=== PATIENT | female | born 1980 | race Caucasian/White ===

== ENCOUNTER → 2016-08-19 | Outpatient (REF) | payer OTHER ==
[~2016-08-19] MED LIST: ACET500C OR; COLA100C2 OR; IBUP600T OR; MILKSUS OR; PRENTAB8 PO
== END ==
LOC: M SFHCWAGY 11:10
PROVIDERS: ATTEND Nurse Practitioner Women's Health
DX: Z12.4 Encounter for screening for malignant neoplasm of cervix (principal); N72 Inflammatory disease of cervix uteri

== ENCOUNTER 2018-11-03 08:43 | Emergency (ER) | payer OTHER ==
[~2018-11-03] VITALS: Ht 167.6 cm; Wt 81.8 kg
[2018-11-03] MEDS ORDERED: diazePAM 5 MG TAB PO ONE (09:30)
[2018-11-03] MEDS ORDERED: methylPREDNISolone INJ 125 MG/2 ML VIAL (J2930) IM ONE (09:30)
[2018-11-03] MEDS ORDERED: VALI5TAB PO (10:05)
[2018-11-03] MEDS ORDERED: PRED20TA PO (10:05)
[2018-11-03 10:18] VITALS: BP 115/54
== END 2018-11-03 10:20 | disposition home or self-care (01) ==
LOC: M ED 08:43
DX: M54.42 Lumbago with sciatica, left side (principal); M62.830 Muscle spasm of back; Z79.1 Long term (current) use of non-steroidal anti-inflammatories (NSAID)
CPT/HCPCS: 96372; 99283; J2930

== ENCOUNTER → 2018-11-30 | Outpatient (REF) | payer OTHER ==
[~2018-11-30] MED LIST changes: +PRED20TA PO; +VALI5TAB PO
[2018-11-30 10:19] LABS: ALBUMIN 3.6 GM/DL (3.2-5.2); ALT/SGPT 26 U/L (12-78); BILIRUBIN,TOTAL 0.4 MG/DL (0.2-1.0); BLOOD UREA NITROGEN 9 MG/DL (7-18); CALCIUM LEVEL 8.7 MG/DL (8.5-10.1); CARBON DIOXIDE LEVEL 25 MEQ/L (21-32); CHLORIDE LEVEL 111 MEQ/L (98-107); CHOLESTEROL LEVEL 185 MG/DL (<200); CHOLESTEROL RISK RATIO 2.642 (<5); CREATININE FOR GFR 0.68 MG/DL (0.55-1.30); GLOMERULAR FILTRATION RATE > 60.0 (>60); GLUCOSE, FASTING 88 MG/DL (70-100); HDL CHOLESTEROL 70 MG/DL (>40); LDL CHOLESTEROL 106 MG/DL (<100); NON-HDL-C 115 MG/DL; POTASSIUM SERUM 4.2 MEQ/L (3.5-5.1); SODIUM LEVEL 141 MEQ/L (136-145); TRIGLYCERIDES LEVEL 44 MG/DL (<150)
== END ==
LOC: M SFHCPLAZ 07:55
PROVIDERS: ATTEND Family Medicine
DX: Z13.1 Encounter for screening for diabetes mellitus (principal); Z13.220 Encounter for screening for lipoid disorders

== ENCOUNTER → 2021-11-29 | Outpatient (CLI) | payer OTHER ==
[2021-11-29 10:32] LABS: BASO % 0.5 % (0.0-1.0); EOS % 0.7 % (0.0-3.0); HEMATOCRIT 37.5 % (36.0-47.0); HEMOGLOBIN 11.5 g/dl (12.0-15.5); LYMPH # 1.5 10^3/uL (1.5-5.0); LYMPH % 25.4 % (24.0-44.0); MEAN CORPUSCULAR HEMOGLOBIN 26.3 pg (27.0-33.0); MEAN CORPUSCULAR HGB CONC 30.7 g/dl (32.0-36.5); MEAN CORPUSCULAR VOLUME 85.8 fl (80.0-96.0); MONO # 0.6 10^3/uL (0.0-0.8); MONO % 9.6 % (2.0-8.0); NEUTROPHILS # 3.7 10^3/uL (1.5-8.5); NEUTROPHILS % 63.5 % (36.0-66.0); PLATELET COUNT, AUTOMATED 321 10^3/uL (150-450); RED BLOOD COUNT 4.37 10^6/uL (4.00-5.40); WHITE BLOOD COUNT 5.8 10^3/uL (4.0-10.0)
[2021-11-29 11:11] LABS: ALBUMIN 3.5 GM/DL (3.2-5.2); ALT/SGPT 26 U/L (12-78); BILIRUBIN,TOTAL 0.3 MG/DL (0.2-1.0); BLOOD UREA NITROGEN 14 MG/DL (7-18); CALCIUM LEVEL 9.1 MG/DL (8.5-10.1); CARBON DIOXIDE LEVEL 29 MEQ/L (21-32); CHLORIDE LEVEL 108 MEQ/L (98-107); CREATININE FOR GFR 0.64 MG/DL (0.55-1.30); GLOMERULAR FILTRATION RATE > 60.0 (>58); GLUCOSE, FASTING 76 MG/DL (70-100); IRON (FE) 94 UG/DL (50-170); POTASSIUM SERUM 5.2 MEQ/L (3.5-5.1); SODIUM LEVEL 138 MEQ/L (136-145); TOTAL PROTEIN 7.2 GM/DL (6.4-8.2)
[2021-11-29 11:45] LABS: TOTAL 25(OH) VITAMIN D 45.5 NG/ML (30.0-100.0)
== END ==
LOC: M PLALAB 07:44
PROVIDERS: ATTEND Physician Assistant
DX: Z00.00 Encounter for general adult medical examination without abnormal findings (principal); E61.1 Iron deficiency; E55.9 Vitamin D deficiency, unspecified

== ENCOUNTER → 2022-12-03 | Outpatient (CLI) | payer OTHER | LOC: M WHC 08:16 | PROVIDERS: ATTEND Nurse Practitioner Family | DX: Z12.31 Encounter for screening mammogram for malignant neoplasm of breast (principal) ==

== ENCOUNTER → 2022-12-03 | Outpatient (CLI) | payer OTHER | LOC: M PLALAB 08:58 | PROVIDERS: ATTEND Nurse Practitioner Family | DX: N73.9 Female pelvic inflammatory disease, unspecified (principal); Z12.4 Encounter for screening for malignant neoplasm of cervix; Z77.9 Other contact with and (suspected) exposures hazardous to health | CPT/HCPCS: 36415; 87070; 87624; G0123 ==

== ENCOUNTER → 2023-06-09 | Outpatient (CLI) | payer OTHER ==
[~2023-06-09] MED LIST changes: +PROHANCE 279.3MG/ML 15ML VIAL ONE
== END ==
LOC: M PLAIMG 08:33
PROVIDERS: ATTEND Nurse Practitioner Family
DX: Z12.31 Encounter for screening mammogram for malignant neoplasm of breast (principal)

== ENCOUNTER → 2023-12-07 | Outpatient (REF) | payer OTHER ==
[~2023-12-07] MED LIST changes: -PROHANCE 279.3MG/ML 15ML VIAL ONE
== END ==
LOC: M SFHCWAGY 10:11
PROVIDERS: ATTEND Nurse Practitioner Family
DX: Z12.4 Encounter for screening for malignant neoplasm of cervix (principal); R87.610 Atypical squamous cells of undetermined significance on cytologic smear of cervix (ASC-US); Z11.51 Encounter for screening for human papillomavirus (HPV); N73.9 Female pelvic inflammatory disease, unspecified

== ENCOUNTER → 2023-12-07 | Outpatient (CLI) | payer OTHER | LOC: M WHC 07:18 | PROVIDERS: ATTEND Nurse Practitioner Family | DX: Z12.31 Encounter for screening mammogram for malignant neoplasm of breast (principal) ==

== ENCOUNTER → 2023-12-31 | Outpatient (CLI) | payer OTHER ==
[2023-12-31 10:36] LABS: BASO % 0.3 % (0.0-1.0); EOS % 0.7 % (0.0-3.0); HEMATOCRIT 42.8 % (36.0-47.0); HEMOGLOBIN 14.5 g/dl (12.0-15.5); LYMPH # 1.9 10^3/uL (1.5-5.0); LYMPH % 33.7 % (24.0-44.0); MEAN CORPUSCULAR HEMOGLOBIN 32.5 pg (27.0-33.0); MEAN CORPUSCULAR HGB CONC 33.9 g/dl (32.0-36.5); MONO # 0.4 10^3/uL (0.0-0.8); MONO % 6.8 % (2.0-8.0); NEUTROPHILS # 3.4 10^3/uL (1.5-8.5); NEUTROPHILS % 58.3 % (36.0-66.0); PLATELET COUNT, AUTOMATED 276 10^3/uL (150-450); RED BLOOD COUNT 4.46 10^6/uL (4.00-5.40); WHITE BLOOD COUNT 5.8 10^3/uL (4.0-10.0)
[2023-12-31 10:41] LABS: THYROID STIMULATING HORMONE 1.158 uIU/ML (0.55-4.78); TOTAL 25(OH) VITAMIN D 54.7 NG/ML (20.0-100.0)
[2023-12-31 10:42] LABS: FREE T4 0.97 NG/DL (0.89-1.76)
[2023-12-31 10:57] LABS: ALBUMIN 3.6 G/DL (3.2-5.2); ALKALINE PHOSPHATASE 58 U/L (46-116); ALT/SGPT 19 U/L (7.0-40); AST/SGOT 11 U/L (<34); BILIRUBIN,TOTAL 0.5 MG/DL (0.3-1.2); BLOOD UREA NITROGEN 13 MG/DL (9-23); CALCIUM LEVEL 9.6 MG/DL (8.5-10.1); CARBON DIOXIDE LEVEL 26 MMOL/L (20-31); CHLORIDE LEVEL 109 MMOL/L (98-107); CHOLESTEROL LEVEL 192 MG/DL (<200); CHOLESTEROL RISK RATIO 3.33 (<5); CREATININE FOR GFR 0.65 MG/DL (0.55-1.30); GLOMERULAR FILTRATION RATE > 60.0 (>58); GLUCOSE, FASTING 82 MG/DL (60-100); HDL CHOLESTEROL 57.6 MG/DL (>40); LDL CHOLESTEROL 124.8 MG/DL (<100); NON-HDL-C 134.4 MG/DL; POTASSIUM SERUM 4.7 MMOL/L (3.5-5.1); SODIUM LEVEL 139 MMOL/L (136-145); TOTAL PROTEIN 6.9 G/DL (5.7-8.2); TRIGLYCERIDES LEVEL 48 MG/DL (<150)
== END ==
LOC: M PLALAB 08:28
PROVIDERS: ATTEND Physician Assistant
DX: Z00.00 Encounter for general adult medical examination without abnormal findings (principal); E55.9 Vitamin D deficiency, unspecified; Z13.220 Encounter for screening for lipoid disorders; Z13.29 Encounter for screening for other suspected endocrine disorder

== ENCOUNTER → 2024-05-24 | Outpatient (CLI) | payer OTHER ==
[2024-05-24 10:26] LABS: BASO % 0.5 % (0.0-1.0); EOS # 0.1 10^3/uL (0.0-0.5); EOS % 0.9 % (0.0-3.0); HEMATOCRIT 41.3 % (36.0-47.0); HEMOGLOBIN 13.8 g/dl (12.0-15.5); LYMPH # 2.2 10^3/uL (1.5-5.0); LYMPH % 27.7 % (24.0-44.0); MEAN CORPUSCULAR HEMOGLOBIN 32.3 pg (27.0-33.0); MEAN CORPUSCULAR HGB CONC 33.4 g/dl (32.0-36.5); MEAN CORPUSCULAR VOLUME 96.7 fl (80.0-96.0); MONO # 0.7 10^3/uL (0.0-0.8); MONO % 8.2 % (2.0-8.0); NEUTROPHILS % 62.3 % (36.0-66.0); PLATELET COUNT, AUTOMATED 270 10^3/uL (150-450); RED BLOOD COUNT 4.27 10^6/uL (4.00-5.40)
[2024-05-24 10:50] LABS: HEMOGLOBIN A1c 4.8 % (4.0-6.0); PERCENT SATURATION 65.2 % (13.2-45.0)
[2024-05-24 10:51] LABS: FERRITIN 20.3 NG/ML (7.3-270.7); THYROID STIMULATING HORMONE 1.572 uIU/ML (0.55-4.78)
[2024-05-24 10:52] LABS: FREE T4 1.08 NG/DL (0.89-1.76)
== END ==
LOC: M PLALAB 08:13
PROVIDERS: ATTEND Nurse Practitioner Family
DX: N92.0 Excessive and frequent menstruation with regular cycle (principal)

== ENCOUNTER → 2024-06-21 | Outpatient (CLI) | payer OTHER | LOC: M RAD 09:57 | PROVIDERS: ATTEND Nurse Practitioner Family | DX: N92.0 Excessive and frequent menstruation with regular cycle (principal) ==

== ENCOUNTER 2024-11-28 06:08 | Day surgery (SDC) | payer OTHER ==
[~2024-11-28] VITALS: Ht 167.6 cm; Wt 88.0 kg
[~2024-11-28 06:08] MED LIST changes: +IRON65TA2 PO; +VITA1CAP25 PO; +VITA80004 PO
[2024-11-28] MEDS ORDERED: KETOROLAC 30 MG/ML 1 ML VIAL As Ordered ONE (06:47)
[2024-11-28] MEDS ORDERED: ONDANSETRON 4MG 2ML VIAL As Ordered ONE (06:47)
[2024-11-28] MEDS ORDERED: SUGAMMADEX SODIUM 500 MG/5 ML VIAL As Ordered ONE (06:48)
[2024-11-28] MEDS ORDERED: ROCURONIUM BROMIDE 50MG/5ML VIAL As Ordered ONE (06:48)
[2024-11-28] MEDS ORDERED: LIDOCAINE 2% 100 MG/5 ML SDV (FOR ANES.) As Ordered ONE (06:48)
[2024-11-28] MEDS ORDERED: dexAMETHasone 4 MG/ML 1 ML VIAL As Ordered ONE (06:48)
[2024-11-28] MEDS ORDERED: ACETAMINOPHEN 1000MG/100ML IV BAG As Ordered ONE (06:54)
[2024-11-28] MEDS ORDERED: HYDROmorphone HCL 2 MG/ML 1 ML VIAL As Ordered ONE (06:57)
[2024-11-28] MEDS ORDERED: MIDAZOLAM INJ 2 MG/2 ML VIAL As Ordered ONE (06:58)
[2024-11-28 07:16] LABS: PLATELET COUNT, AUTOMATED 253 10^3/uL (150-450)
[2024-11-28] MEDS: SCOPOLAMINE 1MG TRANSDERMAL PATCH TOP ONE (07:28)
[2024-11-28] MEDS: LR 1,000 ML IV SCH ×3 (07:29→12:48)
[2024-11-28] MEDS: ceFAZolin SOD 2 GM IV ONCE IV ONE (07:53)
[2024-11-28] MEDS: METHYLENE BLUE 0.5% (5 MG/ML) 10 ML AMP As Ordered ONE (09:02)
[2024-11-28] MEDS ORDERED: DESFLURANE 240 ML INHALANT As Ordered ONE (09:38)
[2024-11-28] MEDS ORDERED: ONDANSETRON 4MG 2ML VIAL IV PRN ×2 (11:05→11:20)
[2024-11-28] MEDS ORDERED: HYDROMORPHONE HCL 0.5 MG/0.5 ML SYRINGE IV PRN (11:05)
[2024-11-28] MEDS ORDERED: MORPHINE 4 MG/ML 1 ML VIAL IV PRN (11:20)
[2024-11-28] MEDS ORDERED: PERCOCET 5MG/325MG TAB PO PRN ×2 (11:20)
[2024-11-28] MEDS ORDERED: ONDA-282 PO (11:24)
[2024-11-28] MEDS ORDERED: COLA100C5 PO (11:24)
[2024-11-28] MEDS ORDERED: IBUP80TA PO (11:24)
[2024-11-28] MEDS ORDERED: PERCOCET PO (11:24)
[2024-11-28] MEDS ORDERED: LABETALOL 100 MG/20 ML VIAL As Ordered ONE (11:59)
[2024-11-28 12:15] VITALS: BP 121/55; TEMP 96.8; O2SAT 99
[2024-11-28 12:50] VITALS: BP 111/64; TEMP 96.9; O2SAT 100
[2024-11-28 13:30] VITALS: BP 109/59; TEMP 97; O2SAT 98
[2024-11-28 14:15] VITALS: BP 113/68; TEMP 98.8; O2SAT 100
[2024-11-28 15:42] VITALS: BP_SYST 101; BP_SYST 110; BP_DIAS 65; TEMP 97.6; O2SAT 98
[2024-11-28] MEDS: ceFAZolin SODIUM 2 GM in DEXTROSE 5% (D5W) ADV/MINI-BAG 50 ML IV ONE (15:53)
[2024-11-28] MEDS: KETOROLAC 30 MG/ML 1 ML VIAL IV SCH (16:35)
[2024-11-28] MEDS ORDERED: DOCUSATE SODIUM 100 MG CAPSULE PO SCH (21:00)
[2024-11-29] MEDS ORDERED: IBUPROFEN 800 MG TAB PO SCH (13:00)
== END 2024-11-28 19:10 | disposition home or self-care (01) ==
LOC: M SDC 06:08 → M PED 11:43 → M SDC 19:10
PROVIDERS: ATTEND Obstetrics & Gynecology
DX: D25.9 Leiomyoma of uterus, unspecified (principal); N84.0 Polyp of corpus uteri; N93.9 Abnormal uterine and vaginal bleeding, unspecified; N88.8 Other specified noninflammatory disorders of cervix uteri
CPT/HCPCS: 36415; 58571; 81025; 85027; 86850; 86900; 86901; 88307; J0131; J0665; J0690; J1100; J1171; J1885; J2250; J2405; J3010; Q9968; S2900

== ENCOUNTER → 2024-12-26 | Outpatient (CLI) | payer OTHER ==
[~2024-12-26] MED LIST changes: +COLA100C5 PO; +IBUP80TA PO; +ONDA-282 PO; +PERCOCET PO
[2024-12-26 10:50] LABS: CHOLESTEROL LEVEL 182.0 MG/DL (<200); CHOLESTEROL RISK RATIO 2.97 (<5); LDL CHOLESTEROL 108.5 MG/DL (<100); NON-HDL-C 120.9 MG/DL; TRIGLYCERIDES LEVEL 62.0 MG/DL (<150)
[2024-12-26 10:52] LABS: IRON (FE) 274.0 UG/DL (50-170); PERCENT SATURATION 89.0 % (13.2-45.0)
[2024-12-26 10:54] LABS: TOTAL 25(OH) VITAMIN D 63.1 NG/ML (20.0-100.0)
[2024-12-26 10:55] LABS: FREE T4 0.99 NG/DL (0.89-1.76)
== END ==
LOC: M PLALAB 07:14
PROVIDERS: ATTEND Nurse Practitioner Family
DX: Z13.29 Encounter for screening for other suspected endocrine disorder (principal); Z13.220 Encounter for screening for lipoid disorders; E55.9 Vitamin D deficiency, unspecified; E61.1 Iron deficiency

== ENCOUNTER → 2025-01-10 | Outpatient (CLI) | payer OTHER | LOC: M WHC 12:43 | PROVIDERS: ATTEND Nurse Practitioner Family | DX: Z12.31 Encounter for screening mammogram for malignant neoplasm of breast (principal) ==